=== PATIENT | male | born 1985 | race Caucasian/White ===

== ENCOUNTER 2023-02-22 14:22 | Emergency (ER) | payer BC, SELFPAY ==
[2023-02-22] VITALS (20 sets, daily range): BP systolic 166–198; BP diastolic 101–128; PULSE 98–117; RESP 11–23; O2SAT 79–100
--- NOTE | ~2023-02-22 | CT_ITS ---
EXAMINATION: CTA BRAIN/CAROTID DATE: 02/22/2023 14:43 INDICATION: Stroke presenting with 2 hours of headache, aphasia and unsteady gait TECHNIQUE: Computed tomographic angiography (CTA) of the head and neck was performed with 100 mL Omni paque-350 intravenous contrast. Multiplanar reconstructions and maximum intensity projection 3D-recon structions of the carotid arteries and of the intracranial arteries were created by the technologist on a separate workstation. Precontrast CT of the head was also obtained. Automated exposure control and iterative reconstruction technique were employed.The dose-length product was 1783.55 mGy-cm. COMPARISON: None. FINDINGS: Carotid arteries: Visualized portion of the aortic arch is normal in caliber with no dissection or hemodynamically sign ificant stenosis. There is no evident atherosclerotic plaque with 0% stenosis of the right and left c arotid bulbs relative to normal distal artery lumen diameter (NASCET criteria). Cervical soft tissues are unremarkable. Mild cervical spondylosis. Visualized upper lungs are clear. Head: No acute intracranial hemorrhage, acute infarction or abnormal extra axial fluid collection. Ventricl es are normal and symmetric. No mass/mass effect. No abnormally enhancing brain lesions on the post c ontrast imaging. The orbits, paranasal sinuses and mastoid air cells are normal. Per stroke protocol, the results from the noncontrast head CT portion of the examination were discussed with Dr. Brown at 2:39 PM . Intracranial arteries There is no hemodynamically significant stenosis in the vertebral, basilar and internal carotid arter ies. Vertebral arteries are codominant. There are no aneurysms identified. Both A1 and P1 segments a re patent. There are also a patent anterior communicating artery and bilateral posterior communicatin g arteries. Cerebral arterial arborization appears symmetric. IMPRESSION: 1. No% stenosis of the right and left carotid bulbs relative to normal distal artery lumen diameter ( NASCET criteria). 2. No acute intracranial process. 3. Normal cerebral CT angiogram. Reviewed, dictated and finalized at location A. IMPRESSION: 1. No% stenosis of the right and left carotid bulbs relative to normal distal a rtery lumen diameter (NASCET criteria). 2. No acute intracranial process. 3. Normal cerebral CT angiogram.
--- NOTE | ~2023-02-22 | XR_ITS ---
Portable chest x-ray Comparison: None Clinical History: Weakness Findings: Lungs are clear, without focal consolidation or pleural effusion. Cardiomediastinal silho uette is unremarkable. Bones and soft tissues are unremarkable. Impression: Normal chest. Reviewed, dictated and finalized at location . Impression: Normal chest.
--- NOTE | 2023-02-22 14:25 | ECG_ITS ---
Measurements Intervals [place] Rate: 95 P: 46 OR: 156 QRS: 3 QRSD: 92 T: 35 QT: 351 QTc: 443 Interpretive Statements SINUS RHYTHM POSSIBLE LEFT ATRIAL ENLARGEMENT [-0.1mV P WAVE IN V1/V2] BORDERLINE ECG NO PREVIOUS ECG AVAILABLE FOR COMPARISON Electronically Signed On 02-22-2023 15:45:15 CDT by Bharat Merchant M.D.
[2023-02-22 14:41] LABS: Estimated Glomerular Filt Rate > 60
[2023-02-22 14:53] LABS: Glucose Point of Care 115 mg/dl (65-105)
--- NOTE | 2023-02-22 15:06 | ED.NEUROSD ---
HPI - Neuro Symptoms/Deficit General Chief Complaint: Suspected CVA Stated Complaint: aphasia Time Seen by Provider: 02/22/23 14:29 History of Present Illness HPI Narrative: 37-year-old male presented to the ED for evaluation of difficulty speaking and difficulty word finding. Patient states that he was complaining of a headache earlier this morning. Patient states that he left for work and was at his baseline at approximately 1215. When patient was at work coworkers noticed that he was having increased difficulty with word finding so he was sent home. Related Data Allergies Allergy/AdvReac Type Severity Reaction Status Date / Time No Known Allergies Allergy Verified 02/22/23 15:32 Review of Systems Review of Systems: All systems reviewed & are unremarkable except as noted in HPI and below PMFSH Family History Family History (System 01/25/20 @ 14:45 by Mily Land) Grandparent Family history of cardiovascular disease Carcinoma of colon Father Family history of cardiovascular disease, Onset Age: 40 Social History Social History (System 01/25/20 @ 14:45 by Mily Land) Smoking status: Never smoker Second hand tobacco smoke exposure: No Alcohol intake: never Exam Narrative: APPEARANCE: Well appearing, no pain, no distress, well-nourished. HEAD: normocephalic, atraumatic. EYES: PERRLA/EOMI, conjunctivae clear. NOSE: Normal no drainage THROAT: Pharynx clear, no exudate. NECK: Supple. No adenopathy, no masses. RESPIRATORY: Airway patent, respirations nonlabored. Clear to auscultation bilaterally, no rales, rhonchi, wheezing. CARDIOVASCULAR: Regular rate and rhythm without murmurs rubs or gallops. ABDOMINAL: Soft, nontender, nondistended, normal bowel sounds MUSCULOSKELETAL: Moves all extremities. Strength/ROM intact, No edema, No calf tenderness. NEURO: Alert. Difficulty word finding. Denies any numbness or weakness. Some decreased peripheral vision of the right visual field of the right eye. No ataxia or drift. Normal strength and reflexes SKIN: Warm, dry. Normal Color PSYCHIATRIC: Normal affect/mood. Course Course Emergency Course: Patient was in the window for tPA. I discussed the case with [facility] neuro interventionalists, Dr Willoughby, and they did recommend treatment with tPA even though the patient does have a negative score of 5. I did have a discussion with the family discussing the benefits and risks of bleeding with tPA. Family was comfortable with the plan on proceeding forward with the tPA. All question concerns were addressed. Patient had no contraindications to tPA other than an intermittent elevated blood pressure. When tPA was started his blood pressure was 166/110. After starting tPA patient's blood pressure did increase but nicardipine was available and was started to maintain a blood pressure under 185/110. Patient was reevaluated and time of transport and patient had no significant change in his symptoms. Vital Signs Vital signs: Vital Signs Pulse Rate 104 H 02/22/23 14:54 Respiratory Rate 20 02/22/23 14:54 Blood Pressure 185/116 H 02/22/23 14:54 Pulse Oximetry 99 02/22/23 14:54 Pulse Rate 113 H 02/22/23 16:11 Respiratory Rate 15 02/22/23 16:11 Blood Pressure 182/108 H 02/22/23 16:11 Pulse Oximetry 100 02/22/23 16:11 Oxygen Delivery Room Air 02/22/23 15:32 MDM - Neuro Symptoms/Deficit Differential Diagnosis Differential diagnosis: Likely subarachnoid hemorrhage, cerebrovascular accident, transient cerebral ischemia and other (Complex migraine) Lab Data Attestation: I reviewed the patient's lab results. 02/22/23 14:58 02/22/23 14:58 Labs: Lab Results 02/22/23 02/22/23 02/22/23 Range/Units 14:39 14:58 14:58 WBC 13.7 H (4.5-10.0) K/mm3 RBC 5.17 (4.6-6.20) M/mm3 Hgb 15.9 (14.0-18.0) g/dL Hct 45.8 (42.0-52.0) % MCV 88.6 (80-100) fl MCH 30.8 (26-34) pg MCHC 34.7 (32-36) g/dl
[2023-02-22 15:09] LABS: Basophils Absolute Auto 0.1 K/mm3 (0.0-0.1); Basophils Percent Auto 0.5 % (0.2-1.2); Eosinophils Percent Auto 0.1 % (0-4.4); Hematocrit 45.8 % (42.0-52.0); Hemoglobin 15.9 g/dL (14.0-18.0); Immature Granulocyte Absolute 0.04 K/mm3 (0.00-0.031); Immature Granulocyte Percent A 0.3 % (0-0.5); Lymphocytes Absolute Auto 1.01 K/mm3 (0.9-3.2); Lymphocytes Percent Auto 7.4 % (18.3-44.2); Mean Corpuscular HGB Conc 34.7 g/dl (32-36); Mean Corpuscular Hemoglobin 30.8 pg (26-34); Mean Corpuscular Volume 88.6 fl (80-100); Mean Platelet Volume 9.7 fl (7.4-10.4); Monocytes Absolute Auto 0.6 K/mm3 (0.1-0.6); Monocytes Percent Auto 4.6 % (2.6-8.5); Neutrophils Absolute Auto 11.9 K/mm3 (1.3-6.7); Neutrophils Percent Auto 87.1 % (45.5-73.1); Platelet Count Result 373 k/mm3 (150-375); Red Blood Count 5.17 M/mm3 (4.6-6.20); Red Cell Distribution Width 12.7 % (11.5-14.5); White Blood Count 13.7 K/mm3 (4.5-10.0)
[2023-02-22 15:16] LABS: INR 1.1; Prothrombin Time 13.4 Seconds (11.1-14.7)
[2023-02-22 15:18] LABS: Alanine Aminotransferase 28 U/L (6-50); Albumin Level 4.8 g/dL (3.5-5.1); Alkaline Phosphatase 79 U/L (38-126); Anion Gap 11 mmol/L (8-16); Aspartate Amino Transferase 28 U/L (17-59); Blood Urea Nitrogen 17 mg/dL (9-20); Calcium 9.2 mg/dL (8.4-10.2); Carbon Dioxide 20 mmol/L (22-30); Chloride 102 mmol/L (98-107); Estimated Glomerular Filt Rate > 60; Glucose 122 mg/dL (65-110); Potassium 4.3 mmol/L (3.4-5.0); Sodium 133 mmol/L (137-145)
[2023-02-22 15:29] LABS: Troponin I < 0.012 ng/mL (0.000-0.034)
[2023-02-22] MEDS: niCARdipine 20 MG/200 ML 20 MG/200 ML BAG 50 MG IV CONT (15:54)
== END 2023-02-22 16:15 | disposition short-term general hospital (02) ==
LOC: ANHED 15:14
PROVIDERS: Emergency Medicine; Emergency Provider Emergency Medicine; PCP Family Medicine
DX: I63.9 Cerebral infarction, unspecified (principal); R29.705 NIHSS score 5; R94.31 Abnormal electrocardiogram [ECG] [EKG]
CPT/HCPCS: 70496; 70498; 71045; 80053; 82948; 84484; 85025; 85610; 85730; 93005; 96374; 96375; 99284; J2997; Q9967

== ENCOUNTER 2023-08-15 03:03 | Inpatient (IN) | payer BC, SELFPAY ==
[2023-08-15] VITALS (23 sets, daily range): BP systolic 120–146; BP diastolic 71–89; PULSE 92–117; RESP 12–24; TEMP 36.1–39.2; O2SAT 94–100
--- NOTE | ~2023-08-15 | CT_ITS ---
EXAMINATION: CT abdomen pelvis wo con DATE: 08/20/2023 16:27 INDICATION: Gastroenteritis. TECHNIQUE: Computed tomography (CT) of the abdomen and pelvis was performed without intravenous contr ast. Automated exposure control and iterative reconstruction technique were employed. The dose-length product was 743.98 mGy-cm. COMPARISON: CT abdomen and pelvis 08/15/2023 FINDINGS: The visualized portions of the lung bases demonstrate mild atelectasis. There are small ple ural effusions. The heart size is normal. No pericardial effusion. The liver and spleen are normal. T here is contrast in the gallbladder, which is normal in size. The pancreas, adrenal glands, and kidne ys are normal. There is no urolithiasis. The prostate is mildly enlarged. There is a left inguinal he rnia containing fat. There is a moderate volume of stool in colon. There is wall thickening of the sp lenic flexure of the colon. The appendix is normal. There is an umbilical hernia containing fat. Ther e are no pathologically enlarged lymph nodes. There is no free intraperitoneal fluid. There is severe lower lumbar spondylosis. IMPRESSION: 1. Small pleural effusions. 2. Wall thickening of the splenic flexure of the colon with interval improvement in distribution, con sistent with colitis. 3. Umbilical hernia containing fat. 4. Left inguinal hernia containing fat. Reviewed, dictated and finalized at location E. IMPRESSION: 1. Small pleural effusions. 2. Wall thickening of the splenic flexure of the colon with interval improvemen t in distribution, consistent with colitis. 3. Umbilical hernia containing fat. 4. Left inguinal hernia containing fat.
--- NOTE | ~2023-08-15 | CT_ITS ---
CT of the Abdomen and Pelvis: Indication: Abdominal pain Technique: 2.5 mm axial scans were obtained through the abdomen and pelvis following intravenous adm inistration of 100 cc of Omnipaque 350. Dose reduction technique was used on this scan by utilizing a utomated exposure control and iterative reconstruction technique. The dose-length product (DLP) was 8 83.65 mGy-cm. Findings: Scans through the lung bases are unremarkable. The liver, spleen, pancreas, gallbladder, adrenals and kidneys are within normal limits. No evidence of aortic aneurysm. No lymphadenopathy. There is mild diffuse large bowel wall thickening. No bowel obstruction. No abscess or free air. Images through the pelvis were performed. Urinary bladder unremarkable. Prostate gland and seminal ve sicles are unremarkable. No ascites. Impression: Diffuse, mild large bowel wall thickening is consistent with pancolitis, most likely of infectious/in flammatory etiology. Correlate clinically. Reviewed, dictated and finalized at [facility]. Impression: Diffuse, mild large bowel wall thickening is consistent with pancolitis, most l ikely of infectious/inflammatory etiology. Correlate clinically.
[2023-08-15] MEDS: SODIUM CHLORIDE 0.9% IV 1,000 ML 999 ML IV CONT ×3 (04:10→05:06)
[2023-08-15] MEDS: ACETAMINOPHEN 500 MG TABLET 1000 MG PO (04:11)
[2023-08-15] MEDS: ONDANSETRON INJ 4 MG/2 ML VIAL IV PUSH (04:11)
[2023-08-15 04:21] LABS: Basophils Absolute Auto 0.1 K/mm3 (0.0-0.1); Hemoglobin 15.7 g/dL (14.0-18.0); Immature Granulocyte Absolute 0.05 K/mm3 (0.00-0.031); Immature Granulocyte Percent A 0.7 % (0-0.5); Lymphocytes Percent Auto 12.2 % (18.3-44.2); Mean Corpuscular HGB Conc 35.7 g/dl (32-36); Mean Corpuscular Hemoglobin 31.3 pg (26-34); Mean Corpuscular Volume 87.6 fl (80-100); Mean Platelet Volume 9.6 fl (7.4-10.4); Monocytes Absolute Auto 1.1 K/mm3 (0.1-0.6); Monocytes Percent Auto 14.3 % (2.6-8.5); Neutrophils Absolute Auto 5.3 K/mm3 (1.3-6.7); Neutrophils Percent Auto 71.8 % (45.5-73.1); Platelet Count Result 331 k/mm3 (150-375); Red Blood Count 5.02 M/mm3 (4.6-6.20); Red Cell Distribution Width 11.9 % (11.5-14.5); White Blood Count 7.4 K/mm3 (4.5-10.0)
[2023-08-15 04:32] LABS: Alanine Aminotransferase 45 U/L (6-50); Albumin Level 4.2 g/dL (3.5-5.1); Alkaline Phosphatase 79 U/L (38-126); Anion Gap 11 mmol/L (8-16); Aspartate Amino Transferase 39 U/L (17-59); Bilirubin,Total 0.8 mg/dL (0.2-1.3); Blood Urea Nitrogen 27 mg/dL (9-20); Calcium 8.9 mg/dL (8.4-10.2); Carbon Dioxide 22 mmol/L (22-30); Chloride 94 mmol/L (98-107); Estimated CRCL calculation 62 ml/min; Estimated Glomerular Filt Rate 56; Glucose 127 mg/dL (65-110); Lipase 112 U/L (23-300); Magnesium 2.2 mg/dL (1.6-2.3); Potassium 3.7 mmol/L (3.4-5.0); Sodium 127 mmol/L (137-145)
[2023-08-15 04:33] LABS: Lactic Acid Reflex 1.8 mmol/L (0.7-2.0)
[2023-08-15 04:57] LABS: Influenza A QL RT-PCR Negative (Negative); Influenza B QL RT-PCR Negative (Negative); SARS-CoV-2 RNA PCR Negative (Negative)
[2023-08-15 05:14] LABS: Procalcitonin 0.2 ng/mL
[2023-08-15 06:34] LABS: Appearance Urine Clear (Clear); Bacteria Urine None Seen /hpf; Bilirubin Urine Negative (Negative); Blood Urine Negative (Negative); Color Urine Yellow (Yellow); Glucose Urine UA Negative (Negative); Ketones Urine 1+ mg/dL (Negative); Leukocyte Esterase Ur Negative LEU/UL (Negative); Need Manual Microscopic Reviewed; Nitrate Urine Negative (Negative); Non Pathogenic Casts 0-2; Protein Urine 1+ mg/dL (Negative); RBC Urine 0-2 /hpf (0-2); Specific Grav Ur 1.085 (1.001-1.035); Squamous Epithelial Cell Urine None seen /hpf (Few); Urobilinogen Urine 0.2 mg/dL (<2.0); WBC Urine 0-5 /hpf; pH Urine 5.5 (5.0-9.0)
[2023-08-15 06:35] LABS: Add Urine Microscopic? YES
--- NOTE | 2023-08-15 06:42 | ED.GENADULT ---
HPI - General Adult General Chief complaint: Fever Stated complaint: fevr, n/v Time Seen by Provider: 08/15/23 03:23 History of Present Illness HPI narrative: Patient is a 38-year-old gentleman who presents the emergency department with chief complaint of nausea vomiting diarrhea and fever. The patient reports that since Saturday he has had multiple bouts of vomiting and diarrhea the patient states he been unable to keep anything down reports that he has seen his primary care provider who started him on Cipro and has had 2 doses of that patient has not had any improvement reports that he feels as though he is extremely dehydrated. Related Data Home Medications Medication Instructions Recorded Confirmed aspirin 81 mg tablet,delayed 81 mg PO DAILY 05/02/23 08/14/23 release (Adult Low Dose Aspirin) Allergies Allergy/AdvReac Type Severity Reaction Status Date / Time No Known Allergies Allergy Verified 08/14/23 10:29 Review of Systems Review of Systems: A 10 system review of systems was completed on the patient and is negative except for what is stated in the HPI. Nursing and ancillary documentation was reviewed. [facility] Past Medical History Medical History Essential (primary) hypertension Headache HTN (hypertension) Surgical History Surgical History [place] teeth extracted (~2004) Family History Family History Grandparent Family history of cardiovascular disease Carcinoma of colon Father Family history of cardiovascular disease, Onset Age: 40 Social History Social History Smoking status: Never smoker Second hand tobacco smoke exposure: No Alcohol intake: never Substance use: never Substance use type: does not use Lack of Transportation: No Lack of Food: Never True Current Housing: I Have Housing Concerned About Future Housing: No Difficulty Paying Gas/Electric Bills: No Difficulty Paying for Meds: No Currently Unemployed: No Education: Bachelor's Degree Difficulty w/ Childcare or Family Care: No Living arrangements: with family Additional living arrangements comments: Occupation/Education: occupation Additional occupation/education comments: [employer] Gender identity (if verbalized by the patient): Male Sexual Orientation (if Verbalized by the Patient): Straight or Heterosexual Spiritual care concerns: No Agree to blood products: Yes Exam Narrative: GENERAL: Well-appearing, well-nourished, and in no acute distress. HEAD: Normocephalic, atraumatic. EYES: PERRLA and EOMI. ENT: Nares clear, no rhinorrhea or epistaxis. Mucous membranes dry. NECK: Supple. CHEST: Clear to auscultation. No respiratory distress. HEART: Regular rate and rhythm. No murmur heard. Normal peripheral pulses. ABDOMEN: Soft, diffusely tender, nondistended, normal active bowel sounds. EXTREMITIES: Normal range of motion. No edema. SKIN: Warm, dry, no rash. NEURO: No focal deficits. Alert and oriented x3. PSYCH: Normal mood and affect. Course Vital Signs Vital signs: Vital Signs Temperature 39.2 C H 08/15/23 03:06 Pulse Rate 117 H 08/15/23 03:06 Respiratory Rate 24 H 08/15/23 03:06 Blood Pressure 146/76 H 08/15/23 03:06 Pulse Oximetry 100 08/15/23 03:06 Oxygen Delivery Room Air 08/15/23 03:06 Temperature 37.1 C 08/15/23 05:32 Pulse Rate 95 08/15/23 06:15 Respiratory Rate 13 08/15/23 06:15 Blood Pressure 124/76 08/15/23 06:15 Pulse Oximetry 99 08/15/23 06:15 Oxygen Delivery Room Air 08/15/23 03:06 Medical Decision Making MDM Narrative Medical decision making narrative: Differential diagnosis diverticulitis, colitis, gastroenteritis Laboratory studies were obt
[2023-08-15] MEDS: PANTOPRAZOLE SODIUM IV 40 MG VIAL IV PUSH (07:07)
[2023-08-15] MEDS: metroNIDAZOLE 500 MG/ISO 100ML 500 MG/100 ML BAG 100 MG IVPB ×3 (07:33→22:03)
--- NOTE | 2023-08-15 07:35 | PM.IMHP ---
H&P: HPI History of Present Illness Date/Time: 08/15/23 07:35 Chief Complaint: Fever nausea vomiting Narrative: 48 years old gentleman with history of hypertension, hyperlipidemia, present ED with a chief complaint of fever, nausea vomiting diarrhea and abdominal pain. Patient started have fever on Saturday, start patient started have nausea vomiting diarrhea and diffuse abdominal pain on Saturday. patient [facility]. In past 2 days, patient cannot tolerate diet, therefore patient comes ED for evaluation. In the ED, patient was found have normal cBC electrolytes showed a creatinine of 1.4 with a BUN of 27 this is significantly increased from the patient's previous labs patient had a lactate of 1.8 procalcitonin 0.2 urinalysis showed no evidence of UTI COVID and flu were negative. CT scan of the abdomen pelvis showed evidence of pancolitis. Patient denies headache, photophobia, chest pain, shortness of breath, cough, dysuria Review of Systems Review of Systems: ROS negative except above PMFSH Past Medical History Medical History Essential (primary) hypertension Headache HTN (hypertension) Surgical History Surgical History [place] teeth extracted (~2004) Family History Family History Grandparent Family history of cardiovascular disease Carcinoma of colon Father Family history of cardiovascular disease, Onset Age: 40 Social History Social History Smoking status: Never smoker Second hand tobacco smoke exposure: No Alcohol intake: never Substance use: never Substance use type: does not use Lack of Transportation: No Lack of Food: Never True Current Housing: I Have Housing Concerned About Future Housing: No Difficulty Paying Gas/Electric Bills: No Difficulty Paying for Meds: No Currently Unemployed: No Education: Bachelor's Degree Difficulty w/ Childcare or Family Care: No Living arrangements: with family Additional living arrangements comments: Occupation/Education: occupation Additional occupation/education comments: [employer] Gender identity (if verbalized by the patient): Male Sexual Orientation (if Verbalized by the Patient): Straight or Heterosexual Spiritual care concerns: No Agree to blood products: Yes Meds Home Medications and Allergies Home Medications Medication Instructions Recorded Confirmed Type CPAP #1 ea 04/15/23 08/15/23 Rx amlodipine 10 mg tablet 10 mg PO DAILY #90 tabs 05/02/23 08/15/23 Rx aspirin 81 mg tablet,delayed 81 mg PO DAILY 05/02/23 08/15/23 History release (Adult Low Dose Aspirin) lisinopril 10 1 tablet PO DAILY #90 tabs 05/02/23 08/15/23 Rx mg-hydrochlorothiazide 12.5 mg tablet ciprofloxacin HCl 500 mg tablet 500 mg PO Q12H #10 tabs 08/14/23 08/15/23 Rx (Cipro) ondansetron 8 mg disintegrating 8 mg PO Q8H PRN nausea and 08/14/23 08/15/23 Rx tablet vomiting #15 tabs atorvastatin 80 mg tablet 80 mg PO QPM 08/15/23 08/15/23 History Allergies Allergy/AdvReac Type Severity Reaction Status Date / Time No Known Allergies Allergy Verified 08/15/23 08:48 Vital Signs Vital Signs - 24 hr 08/15/23 03:06 08/15/23 03:27 08/15/23 03:45 Temperature 102.6 F H Pulse Rate 117 H 109 H 107 H Respiratory Rate 24 H 20 15 Blood Pressure 146/76 H 133/89 Pulse Oximetry 100 99 99 Oxygen Delivery Room Air 08/15/23 03:46 08/15/23 04:00 08/15/23 04:01 Temperature Pulse Rate 106 H 106 H 107 H Respiratory Rate 14 15 16 Blood Pressure 131/84 130/81 Pulse Oximetry 99 Oxygen Delivery 08/15/23 04:46 08/15/23 05:00 08/15/23 05:26 Temperature Pulse Rate 98 107 H 97 Respiratory Rate 16 15 15 Blood Pressure 124/73
--- NOTE | 2023-08-15 08:25 | ADMGEN ---
This patient, Brett Knight, was admitted to 3 [facility] Surg Room 313-01. Patient/family oriented to hospital policies and general routines including ID bracelet, bed and alarms, visiting hours, pain management, procedures, bathroom and other care routines, personal items, smoking policy, room service/diet, and visiting hours. Information on how to activate the Rapid Response Team has been discussed. Patient/Family are encouraged to report perceived risks to care and to ask questions if they do not understand what they are told or what they should do.
[2023-08-15] MEDS: SODIUM CHLORIDE 0.9% IV 1,000 ML 125 ML IV CONT ×2 (08:39→17:31)
[2023-08-15 12:53] LABS: Toxigenic C. Diff NEGATIVE (NEGATIVE)
[2023-08-15] MEDS: HEPARIN SODIUM 5,000 UNITS/ML VIAL 5000 UNITS SUB-Q ×2 (14:10→22:00)
[2023-08-15] MEDS: cefTRIAXone 2 GM/NS 100 ML 2 GM/100 ML BAG IVPB (15:23)
[2023-08-16] MEDS: SODIUM CHLORIDE 0.9% IV 1,000 ML 125 ML IV CONT ×2 (02:39→22:11)
[2023-08-16] MEDS: metroNIDAZOLE 500 MG/ISO 100ML 500 MG/100 ML BAG 100 MG IVPB ×3 (05:37→21:29)
[2023-08-16] MEDS: HEPARIN SODIUM 5,000 UNITS/ML VIAL 5000 UNITS SUB-Q ×3 (05:37→21:29)
[2023-08-16 06:00] VITALS: BP 127/72; PULSE 92; RESP 16; TEMP 36.1; O2SAT 95
[2023-08-16 06:40] LABS: Basophils Absolute Auto 0.1 K/mm3 (0.0-0.1); Basophils Percent Auto 0.7 % (0.2-1.2); Eosinophils Percent Auto 0.1 % (0-4.4); Hematocrit 35.1 % (42.0-52.0); Hemoglobin 12.1 g/dL (14.0-18.0); Immature Granulocyte Absolute 0.08 K/mm3 (0.00-0.031); Immature Granulocyte Percent A 0.8 % (0-0.5); Lymphocytes Absolute Auto 1.64 K/mm3 (0.9-3.2); Lymphocytes Percent Auto 17.4 % (18.3-44.2); Mean Corpuscular HGB Conc 34.5 g/dl (32-36); Mean Corpuscular Hemoglobin 30.9 pg (26-34); Mean Corpuscular Volume 89.5 fl (80-100); Mean Platelet Volume 9.4 fl (7.4-10.4); Monocytes Absolute Auto 1.6 K/mm3 (0.1-0.6); Monocytes Percent Auto 16.7 % (2.6-8.5); Neutrophils Absolute Auto 6.1 K/mm3 (1.3-6.7); Neutrophils Percent Auto 64.3 % (45.5-73.1); Platelet Count Result 309 k/mm3 (150-375); Red Blood Count 3.92 M/mm3 (4.6-6.20); Red Cell Distribution Width 11.9 % (11.5-14.5); White Blood Count 9.5 K/mm3 (4.5-10.0)
[2023-08-16 06:50] LABS: Anion Gap 8 mmol/L (8-16); Blood Urea Nitrogen 11 mg/dL (9-20); Calcium 7.3 mg/dL (8.4-10.2); Carbon Dioxide 20 mmol/L (22-30); Chloride 103 mmol/L (98-107); Estimated CRCL calculation 146 ml/min; Estimated Glomerular Filt Rate > 60; Glucose 91 mg/dL (65-110); Potassium 3.3 mmol/L (3.4-5.0); Sodium 131 mmol/L (137-145)
[2023-08-16] MEDS: PANTOPRAZOLE SODIUM IV 40 MG VIAL IV PUSH (08:38)
--- NOTE | 2023-08-16 08:40 | PM.IMPN ---
Progress Note: A&P Assessment and Plan (1) Acute infective gastroenteritis: Code(s): A09 - Infectious gastroenteritis and colitis, unspecified Status: Acute (2) Sepsis: Code(s): A41.9 - Sepsis, unspecified organism Status: Acute (3) Dehydration: Code(s): E86.0 - Dehydration Status: Acute (4) Acute kidney injury: Code(s): N17.9 - Acute kidney failure, unspecified Status: Acute (5) Essential (primary) hypertension: Code(s): I10 - Essential (primary) hypertension Status: Acute Plan Acute infective gastroenteritis Patient has been having nausea vomiting diarrhea abdominal pain in past 5 days, failed outpatient treatment with Cipro The patient has a fever, tachycardia tachypnea Possible sepsis due to acute infective gastroenteritis CT suggests pancolitis Patient received ceftriaxone 1 g daily in the ED, Flagyl 500 q.8 hours IV, for increased ceftriaxone 2 g IV daily, continue Flagyl 500 mg q.8 hours Follow-up blood culture, stool culture, C diff screening Continue antibiotics Sepsis Patient had fever, tachypnea, tachycardia POA in the ED, possible resulting from acute infective gastroenteritis Patient received fluid resuscitation in the ED, continue normal saline IV Follow-up blood culture, stool culture pendig. C diff negative LUC, dehydration, hyponatremia, hypokalemia Likely secondary to acute gastroenteritis Continue fluid resuscitation, replete with potassium chloride p.o. 40 mEq daily Avoid nephrotoxic medication Follow-up BMP Acute renal failure has resolved Hypertension Hold hypertension medication, blood pressure soft Patient may stay more than 2 midnight in hospital DVT prophylaxis subQ heparin Subjective Date/time seen: 08/16/23 08:40 Interval history: Patient is afebrile over the night, feels better, still has diarrhea 1 bowel movement per 1 hr. acute renal failure resolved, stool culture pending, C diff negative Exam Narrative: GENERAL: Pleasant, in no acute distress. Well-nourished. - EYES: EOMI. Anicteric. - HENT: Dry mucous membranes. - LUNGS: Clear to auscultation bilaterally, no wheezing, rhonchi, or rales. - CARDIOVASCULAR: Regular rate and rhythm. No murmur. No JVD. - ABDOMEN: Soft, diffuse tender and non-distended. Hyperactive bowel sounds no palpable masses. - EXTREMITIES: No edema. Peripheral pulses 2+. Non-tender. - NEUROLOGIC: No focal neurological deficits. CN II-XII grossly intact. - PSYCHIATRIC: Awake, Alert and oriented x 3. Appropriate mood and affect. - SKIN: No rashes or lesions. Warm. - LYMPH: No cervical lymphadenopathy. Objective Data Vital Signs Vital Signs: Vital Signs - 24 hr 08/15/23 08:50 08/15/23 11:42 08/15/23 19:46 Temperature 97.1 F L 97.2 F L Pulse Rate 92 92 Respiratory Rate 16 16 Blood Pressure 120/79 Pulse Oximetry 98 98 Oxygen Delivery Room Air 08/15/23 22:00 08/16/23 06:00 Temperature 98.2 F 97 F L Pulse Rate 96 92 Respiratory Rate 18 16 Blood Pressure 120/71 127/72 Pulse Oximetry 97 95 Oxygen Delivery Intake/Output Intake/Output: Intake & Output 08/13/23 08/14/23 08/15/23 08/16/23 23:59 23:59 23:59 23:59 Intake Total 4400 1000 Balance 4400 1000 Meds/Results Medications: Active Medications Generic Name Dose Route Start Last Admin Trade Name Freq PRN Reason Stop Dose Admin Heparin Sodium (Porcine) 5,000 units 08/15/23 14:00 08/16/23 05:37 Heparin Sodium 5,000 Units/Ml Vial SUB-Q 5,000 units Q8HR OLENA Administration Metronidazole 500 mg in 100 mls @ 100 mls/hr 08/15/23 14:00 08/16/23 05:37 Flagyl 500 Mg/Iso Soln 100 Ml IVPB 100 mls/hr Q8HR OLENA Administration Sodium Chloride 1,000 mls @ 125 mls/hr 08/15/23 06:50 08/16/23 02:39 Normal Saline Iv IV CONT 125 mls/hr .Q8H OLENA Administration Ceftriaxone Sodium 2 gm in 100 mls @ 200 mls/hr 08/15/23 15:00 08/15/23 15:53 Rocephin 2 Gm/Ns 100 Ml
[2023-08-16] MEDS: POTASSIUM CHLORIDE 20 MEQ PACKET (FOR LIQUID) 40 MEQ PO (09:50)
[2023-08-16] MEDS: LOPERAMIDE HCL 2 MG CAPSULE 4 MG PO (12:38)
[2023-08-16 13:30] VITALS: BP 118/79; PULSE 91; RESP 18; TEMP 37.2; O2SAT 95
[2023-08-16] MEDS: cefTRIAXone 2 GM/NS 100 ML 2 GM/100 ML BAG IVPB (16:29)
[2023-08-16 19:32] VITALS: O2SAT 95
[2023-08-16 21:18] VITALS: BP 150/83; PULSE 100; RESP 18; TEMP 36.3; O2SAT 97
[2023-08-17 06:00] VITALS: BP 123/77; PULSE 87; RESP 16; TEMP 36.2; O2SAT 96
[2023-08-17 06:55] LABS: Basophils Absolute Auto 0.1 K/mm3 (0.0-0.1); Basophils Percent Auto 0.7 % (0.2-1.2); Eosinophils Absolute Auto 0.1 K/mm3 (0-0.3); Hemoglobin 11.7 g/dL (14.0-18.0); Immature Granulocyte Absolute 0.13 K/mm3 (0.00-0.031); Immature Granulocyte Percent A 1.3 % (0-0.5); Lymphocytes Absolute Auto 1.76 K/mm3 (0.9-3.2); Mean Corpuscular HGB Conc 35.5 g/dl (32-36); Mean Corpuscular Hemoglobin 31.4 pg (26-34); Mean Corpuscular Volume 88.5 fl (80-100); Mean Platelet Volume 9.5 fl (7.4-10.4); Monocytes Absolute Auto 1.4 K/mm3 (0.1-0.6); Monocytes Percent Auto 14.5 % (2.6-8.5); Neutrophils Absolute Auto 6.3 K/mm3 (1.3-6.7); Neutrophils Percent Auto 64.5 % (45.5-73.1); Platelet Count Result 336 k/mm3 (150-375); Red Blood Count 3.73 M/mm3 (4.6-6.20); White Blood Count 9.8 K/mm3 (4.5-10.0)
[2023-08-17 07:11] LABS: Anion Gap 6 mmol/L (8-16); Blood Urea Nitrogen 12 mg/dL (9-20); Calcium 7.5 mg/dL (8.4-10.2); Carbon Dioxide 22 mmol/L (22-30); Chloride 105 mmol/L (98-107); Estimated CRCL calculation 121 ml/min; Estimated Glomerular Filt Rate > 60; Glucose 98 mg/dL (65-110); Potassium 3.5 mmol/L (3.4-5.0); Sodium 133 mmol/L (137-145)
--- NOTE | 2023-08-17 08:59 | PM.IMPN ---
Progress Note: A&P Assessment and Plan (1) Acute infective gastroenteritis: Code(s): A09 - Infectious gastroenteritis and colitis, unspecified Status: Acute (2) Sepsis: Code(s): A41.9 - Sepsis, unspecified organism Status: Acute (3) Dehydration: Code(s): E86.0 - Dehydration Status: Acute (4) Acute kidney injury: Code(s): N17.9 - Acute kidney failure, unspecified Status: Acute (5) Essential (primary) hypertension: Code(s): I10 - Essential (primary) hypertension Status: Acute Plan Acute infective gastroenteritis Patient has been having nausea vomiting diarrhea abdominal pain in past 5 days, failed outpatient treatment with Cipro The patient has a fever, tachycardia tachypnea Possible sepsis due to acute infective gastroenteritis CT suggests pancolitis Patient received ceftriaxone 1 g daily in the ED, Flagyl 500 q.8 hours IV, for increased ceftriaxone 2 g IV daily, continue Flagyl 500 mg q.8 hours Follow-up blood culture no growth, pending stool culture, C diff screening negative Continue antibiotics Sepsis Patient had fever, tachypnea, tachycardia POA in the ED, possible resulting from acute infective gastroenteritis Patient received fluid resuscitation in the ED, continue normal saline IV Follow-up blood culture no growth so far,, stool culture pendig. C diff negative LUC, dehydration, hyponatremia, hypokalemia Likely secondary to acute gastroenteritis Continue fluid resuscitation, replete with potassium chloride p.o. 40 mEq daily Avoid nephrotoxic medication Follow-up BMP Acute renal failure has resolved Hypertension Hold hypertension medication, blood pressure soft Patient may stay more than 2 midnight in hospital DVT prophylaxis subQ heparin Subjective Date/time seen: 08/17/23 08:59 Interval history: Patient is afebrile over the night, feels better, still has diarrhea but has last bowel movement today, blood culture negative, stool culture pending, low-grade fever in the night, Exam Narrative: GENERAL: Pleasant, in no acute distress. Well-nourished. - EYES: EOMI. Anicteric. - HENT: Dry mucous membranes. - LUNGS: Clear to auscultation bilaterally, no wheezing, rhonchi, or rales. - CARDIOVASCULAR: Regular rate and rhythm. No murmur. No JVD. - ABDOMEN: Soft, diffuse tender and non-distended. Hyperactive bowel sounds no palpable masses. - EXTREMITIES: No edema. Peripheral pulses 2+. Non-tender. - NEUROLOGIC: No focal neurological deficits. CN II-XII grossly intact. - PSYCHIATRIC: Awake, Alert and oriented x 3. Appropriate mood and affect. - SKIN: No rashes or lesions. Warm. - LYMPH: No cervical lymphadenopathy. Objective Data Vital Signs Vital Signs: Vital Signs - 24 hr 08/16/23 13:30 08/16/23 19:32 08/16/23 21:18 Temperature 99.0 F 97.3 F L Pulse Rate 91 100 Respiratory Rate 18 18 Blood Pressure 118/79 150/83 H Pulse Oximetry 95 95 97 Oxygen Delivery Room Air 08/17/23 06:00 Temperature 97.2 F L Pulse Rate 87 Respiratory Rate 16 Blood Pressure 123/77 Pulse Oximetry 96 Oxygen Delivery Intake/Output Intake/Output: Intake & Output 08/14/23 08/15/23 08/16/23 08/17/23 23:59 23:59 23:59 23:59 Intake Total 4400 3330 250 Balance 4400 3330 250 Meds/Results Medications: Active Medications Generic Name Dose Route Start Last Admin Trade Name Freq PRN Reason Stop Dose Admin Heparin Sodium (Porcine) 5,000 units 08/15/23 14:00 08/16/23 21:29 Heparin Sodium 5,000 Units/Ml Vial SUB-Q 5,000 units Q8HR OLENA Administration Metronidazole 500 mg in 100 mls @ 100 mls/hr 08/15/23 14:00 08/16/23 21:29 Flagyl 500 Mg/Iso Soln 100 Ml IVPB 100 mls/hr Q8HR OLENA Administration Sodium Chloride 1,000 mls @ 125 mls/hr 08/15/23 06:50 08/17/23 08:46 Normal Saline Iv IV CONT Not Given .Q8H OLENA Ceftriaxone Sodium 2 gm in 100 mls @ 200 mls/hr 08/15/23 15:00 08/16/23 16:59 Roce
[2023-08-17] MEDS: SODIUM CHLORIDE 0.9% IV 1,000 ML 125 ML IV CONT ×2 (09:04→20:54)
[2023-08-17] MEDS: POTASSIUM CHLORIDE 20 MEQ PACKET (FOR LIQUID) 40 MEQ PO (09:04)
[2023-08-17] MEDS: PANTOPRAZOLE SODIUM IV 40 MG VIAL IV PUSH (09:04)
[2023-08-17 14:00] VITALS: BP 119/71; PULSE 91; RESP 14; TEMP 37.3; O2SAT 98
[2023-08-17] MEDS: LOPERAMIDE HCL 2 MG CAPSULE 4 MG PO (14:40)
[2023-08-17] MEDS: HEPARIN SODIUM 5,000 UNITS/ML VIAL 5000 UNITS SUB-Q ×2 (14:41→20:56)
[2023-08-17] MEDS: metroNIDAZOLE 500 MG/ISO 100ML 500 MG/100 ML BAG 100 MG IVPB ×2 (14:41→20:56)
[2023-08-17] MEDS: cefTRIAXone 2 GM/NS 100 ML 2 GM/100 ML BAG IVPB (14:41)
[2023-08-17] MEDS: LOPERAMIDE HCL 2 MG CAPSULE PO (16:54)
[2023-08-17 20:00] VITALS: PULSE 89; RESP 16; O2SAT 97
[2023-08-17] MEDS: ONDANSETRON INJ 4 MG/2 ML VIAL IV PUSH (20:55)
[2023-08-17 22:00] VITALS: BP 137/86; PULSE 93; RESP 14; TEMP 36.8; O2SAT 98
[2023-08-18 05:52] VITALS: BP 126/82; PULSE 90; RESP 16; TEMP 36.7; O2SAT 95
[2023-08-18] MEDS: SODIUM CHLORIDE 0.9% IV 1,000 ML 125 ML IV CONT ×2 (06:12→14:50)
[2023-08-18] MEDS: HEPARIN SODIUM 5,000 UNITS/ML VIAL 5000 UNITS SUB-Q ×3 (06:13→21:10)
[2023-08-18] MEDS: metroNIDAZOLE 500 MG/ISO 100ML 500 MG/100 ML BAG 100 MG IVPB (06:14)
--- NOTE | 2023-08-18 07:58 | PM.IMPN ---
Progress Note: A&P Assessment and Plan (1) Acute infective gastroenteritis: Code(s): A09 - Infectious gastroenteritis and colitis, unspecified Status: Acute (2) Sepsis: Code(s): A41.9 - Sepsis, unspecified organism Status: Acute (3) Dehydration: Code(s): E86.0 - Dehydration Status: Acute (4) Acute kidney injury: Code(s): N17.9 - Acute kidney failure, unspecified Status: Acute (5) Essential (primary) hypertension: Code(s): I10 - Essential (primary) hypertension Status: Acute Plan Acute infective gastroenteritis Patient has been having nausea vomiting diarrhea abdominal pain in past 5 days, failed outpatient treatment with Cipro The patient has a fever, tachycardia tachypnea Possible sepsis due to acute infective gastroenteritis CT suggests pancolitis Patient received ceftriaxone 1 g daily in the ED, Flagyl 500 q.8 hours IV, for increased ceftriaxone 2 g IV daily and Flagyl 500 mg q.8 hours 08/18 Follow-up blood culture no growth, Salmonella bacteria grows from stool culture, resistant to Levaquin. C diff screening negative dc Flagyl Continue ceftriaxone IV, still has diarrhea, add azithromycin 1 g today, 500 mg daily from tomorrow Sepsis Patient had fever, tachypnea, tachycardia POA in the ED, possible resulting from acute infective gastroenteritis Patient received fluid resuscitation in the ED, continue normal saline IV Follow-up blood culture no growth so far,, stool culture pendig. C diff negative LUC, dehydration, hyponatremia, hypokalemia Likely secondary to acute gastroenteritis Continue fluid resuscitation, replete with potassium chloride p.o. 40 mEq daily Avoid nephrotoxic medication Follow-up BMP Acute renal failure has resolved Hypertension Hold hypertension medication, blood pressure soft Patient may stay more than 2 midnight in hospital DVT prophylaxis subQ heparin Subjective Date/time seen: 08/18/23 07:58 Interval history: Patient is afebrile over the night, feels better, still has diarrhea but has less bowel movement today, blood culture negative, stool culture grows salmonella, resistant to levofloxacin Exam Narrative: GENERAL: Pleasant, in no acute distress. Well-nourished. - EYES: EOMI. Anicteric. - HENT: Dry mucous membranes. - LUNGS: Clear to auscultation bilaterally, no wheezing, rhonchi, or rales. - CARDIOVASCULAR: Regular rate and rhythm. No murmur. No JVD. - ABDOMEN: Soft, diffuse tender and non-distended. Hyperactive bowel sounds no palpable masses. - EXTREMITIES: No edema. Peripheral pulses 2+. Non-tender. - NEUROLOGIC: No focal neurological deficits. CN II-XII grossly intact. - PSYCHIATRIC: Awake, Alert and oriented x 3. Appropriate mood and affect. - SKIN: No rashes or lesions. Warm. - LYMPH: No cervical lymphadenopathy. Objective Data Vital Signs Vital Signs: Vital Signs - 24 hr 08/17/23 08:00 08/17/23 14:00 08/17/23 20:00 Temperature 99.2 F Pulse Rate 91 89 Respiratory Rate 14 16 Blood Pressure 119/71 Pulse Oximetry 98 97 Oxygen Delivery Room Air Room Air 08/17/23 22:00 08/18/23 05:52 Temperature 98.3 F 98.1 F Pulse Rate 93 90 Respiratory Rate 14 16 Blood Pressure 137/86 126/82 Pulse Oximetry 98 95 Oxygen Delivery Intake/Output Intake/Output: Intake & Output 08/15/23 08/16/23 08/17/23 08/18/23 23:59 23:59 23:59 23:59 Intake Total 4400 3430 3652 1790 Balance 4400 3430 3652 1790 Meds/Results Medications: Active Medications Generic Name Dose Route Start Last Admin Trade Name Freq PRN Reason Stop Dose Admin Heparin Sodium (Porcine) 5,000 units 08/15/23 14:00 08/18/23 06:13 Heparin Sodium 5,000 Units/Ml Vial SUB-Q 5,000 units Q8HR OLENA Administration Metronidazole 500 mg in 100 mls @ 100 mls/hr 08/15/23 14:00 08/18/23 06:14 Flagyl 500 Mg/Iso Soln 100 Ml IVPB 100 mls/hr Q8HR OLENA Administration Sodium Chloride 1,000 mls @ 125 mls
[2023-08-18] MEDS: PANTOPRAZOLE SODIUM IV 40 MG VIAL IV PUSH (08:23)
[2023-08-18] MEDS: POTASSIUM CHLORIDE 20 MEQ PACKET (FOR LIQUID) 40 MEQ PO (08:23)
[2023-08-18] MEDS: LOPERAMIDE HCL 2 MG CAPSULE PO ×3 (08:23→17:54)
[2023-08-18 08:48] LABS: Basophils Absolute Auto 0.1 K/mm3 (0.0-0.1); Basophils Percent Auto 0.9 % (0.2-1.2); Eosinophils Absolute Auto 0.3 K/mm3 (0-0.3); Eosinophils Percent Auto 3.2 % (0-4.4); Hemoglobin 12.3 g/dL (14.0-18.0); Immature Granulocyte Absolute 0.36 K/mm3 (0.00-0.031); Immature Granulocyte Percent A 3.6 % (0-0.5); Lymphocytes Absolute Auto 2.26 K/mm3 (0.9-3.2); Lymphocytes Percent Auto 22.8 % (18.3-44.2); Mean Corpuscular HGB Conc 34.2 g/dl (32-36); Mean Corpuscular Hemoglobin 30.7 pg (26-34); Mean Corpuscular Volume 89.8 fl (80-100); Mean Platelet Volume 9.2 fl (7.4-10.4); Monocytes Absolute Auto 1.2 K/mm3 (0.1-0.6); Monocytes Percent Auto 12.2 % (2.6-8.5); Neutrophils Absolute Auto 5.7 K/mm3 (1.3-6.7); Neutrophils Percent Auto 57.3 % (45.5-73.1); Platelet Count Result 387 k/mm3 (150-375); Red Blood Count 4.01 M/mm3 (4.6-6.20); Red Cell Distribution Width 12.6 % (11.5-14.5); White Blood Count 9.9 K/mm3 (4.5-10.0)
[2023-08-18 09:00] LABS: Anion Gap 6 mmol/L (8-16); Blood Urea Nitrogen 5 mg/dL (9-20); Calcium 7.9 mg/dL (8.4-10.2); Carbon Dioxide 25 mmol/L (22-30); Chloride 107 mmol/L (98-107); Estimated CRCL calculation 121 ml/min; Estimated Glomerular Filt Rate > 60; Glucose 103 mg/dL (65-110); Potassium 3.8 mmol/L (3.4-5.0); Sodium 138 mmol/L (137-145)
[2023-08-18 10:02] VITALS: O2SAT 98
[2023-08-18 14:00] VITALS: BP 132/85; PULSE 94; RESP 16; TEMP 36.9; O2SAT 100
[2023-08-18] MEDS: AZITHROMYCIN 250 MG TABLET 1000 MG PO (15:07)
[2023-08-18] MEDS: cefTRIAXone 2 GM/NS 100 ML 2 GM/100 ML BAG IVPB (15:07)
[2023-08-18 20:07] VITALS: BP 130/85; PULSE 94; RESP 16; TEMP 36.7; O2SAT 100
[2023-08-19] MEDS: SODIUM CHLORIDE 0.9% IV 1,000 ML 125 ML IV CONT (00:57)
[2023-08-19 05:47] VITALS: BP 128/76; PULSE 101; RESP 16; TEMP 36.6; O2SAT 98
[2023-08-19] MEDS: HEPARIN SODIUM 5,000 UNITS/ML VIAL 5000 UNITS SUB-Q ×3 (06:40→20:48)
[2023-08-19 06:41] LABS: Basophils Absolute Auto 0.1 K/mm3 (0.0-0.1); Eosinophils Absolute Auto 0.5 K/mm3 (0-0.3); Eosinophils Percent Auto 4.1 % (0-4.4); Hematocrit 32.7 % (42.0-52.0); Hemoglobin 11.3 g/dL (14.0-18.0); Immature Granulocyte Percent A 4.8 % (0-0.5); Lymphocytes Percent Auto 23.9 % (18.3-44.2); Mean Corpuscular HGB Conc 34.6 g/dl (32-36); Mean Corpuscular Hemoglobin 30.6 pg (26-34); Mean Corpuscular Volume 88.6 fl (80-100); Mean Platelet Volume 8.9 fl (7.4-10.4); Monocytes Absolute Auto 1.3 K/mm3 (0.1-0.6); Monocytes Percent Auto 10.5 % (2.6-8.5); Neutrophils Percent Auto 55.7 % (45.5-73.1); Platelet Count Result 407 k/mm3 (150-375); Red Blood Count 3.69 M/mm3 (4.6-6.20); Red Cell Distribution Width 12.5 % (11.5-14.5); White Blood Count 12.6 K/mm3 (4.5-10.0)
[2023-08-19 06:52] LABS: Anion Gap 3 mmol/L (8-16); Blood Urea Nitrogen 6 mg/dL (9-20); Calcium 7.8 mg/dL (8.4-10.2); Carbon Dioxide 26 mmol/L (22-30); Chloride 106 mmol/L (98-107); Estimated CRCL calculation 137 ml/min; Estimated Glomerular Filt Rate > 60; Glucose 101 mg/dL (65-110); Potassium 3.7 mmol/L (3.4-5.0); Sodium 135 mmol/L (137-145)
--- NOTE | 2023-08-19 08:07 | PM.IMPN ---
Progress Note: A&P Assessment and Plan (1) Acute infective gastroenteritis: Code(s): A09 - Infectious gastroenteritis and colitis, unspecified Status: Acute (2) Sepsis: Code(s): A41.9 - Sepsis, unspecified organism Status: Acute (3) Dehydration: Code(s): E86.0 - Dehydration Status: Acute (4) Acute kidney injury: Code(s): N17.9 - Acute kidney failure, unspecified Status: Acute (5) Essential (primary) hypertension: Code(s): I10 - Essential (primary) hypertension Status: Acute Plan Acute infective gastroenteritis Patient has been having nausea vomiting diarrhea abdominal pain in past 5 days, failed outpatient treatment with Cipro The patient has a fever, tachycardia tachypnea Possible sepsis due to acute infective gastroenteritis CT suggests pancolitis Patient received ceftriaxone 1 g daily in the ED, Flagyl 500 q.8 hours IV, for increased ceftriaxone 2 g IV daily and Flagyl 500 mg q.8 hours 08/18 Follow-up blood culture no growth, Salmonella bacteria grows from stool culture, resistant to Levaquin. C diff screening negative dc Flagyl Continue ceftriaxone IV, still has diarrhea, susceptibility suggestive Bactrim. Start bactrim 1 tab q.12 hour p.o. Sepsis Patient had fever, tachypnea, tachycardia POA in the ED, possible resulting from acute infective gastroenteritis Patient received fluid resuscitation in the ED, continue normal saline IV Follow-up blood culture no growth so far,, stool culture pendig. C diff negative LUC, dehydration, hyponatremia, hypokalemia Likely secondary to acute gastroenteritis Continue fluid resuscitation, replete with potassium chloride p.o. 40 mEq daily Avoid nephrotoxic medication Follow-up BMP Acute renal failure has resolved Hypertension Hold hypertension medication, blood pressure soft Patient may stay more than 2 midnight in hospital DVT prophylaxis subQ heparin Subjective Date/time seen: 08/19/23 08:07 Interval history: Patient is afebrile over the night, feels better, still has diarrhea but has less bowel movement today, blood culture negative, stool culture grows salmonella, resistant to levofloxacin Exam Narrative: GENERAL: Pleasant, in no acute distress. Well-nourished. - EYES: EOMI. Anicteric. - HENT: Dry mucous membranes. - LUNGS: Clear to auscultation bilaterally, no wheezing, rhonchi, or rales. - CARDIOVASCULAR: Regular rate and rhythm. No murmur. No JVD. - ABDOMEN: Soft, diffuse tender and non-distended. Hyperactive bowel sounds no palpable masses. - EXTREMITIES: No edema. Peripheral pulses 2+. Non-tender. - NEUROLOGIC: No focal neurological deficits. CN II-XII grossly intact. - PSYCHIATRIC: Awake, Alert and oriented x 3. Appropriate mood and affect. - SKIN: No rashes or lesions. Warm. - LYMPH: No cervical lymphadenopathy. Objective Data Vital Signs Vital Signs: Vital Signs - 24 hr 08/18/23 10:02 08/18/23 14:00 08/18/23 20:07 Temperature 98.5 F 98.1 F Pulse Rate 94 94 Respiratory Rate 16 16 Blood Pressure 132/85 130/85 Pulse Oximetry 98 100 100 Oxygen Delivery Room Air 08/18/23 20:00 08/19/23 05:47 Temperature 97.9 F Pulse Rate 101 H Respiratory Rate 16 Blood Pressure 128/76 Pulse Oximetry 98 Oxygen Delivery Room Air Intake/Output Intake/Output: Intake & Output 08/16/23 08/17/23 08/18/23 08/19/23 23:59 23:59 23:59 23:59 Intake Total 3430 3752 4988 Balance 3430 3752 4988 Meds/Results Medications: Active Medications Generic Name Dose Route Start Last Admin Trade Name Freq PRN Reason Stop Dose Admin Heparin Sodium (Porcine) 5,000 units 08/15/23 14:00 08/19/23 06:40 Heparin Sodium 5,000 Units/Ml Vial SUB-Q 5,000 units Q8HR OLENA Administration Sodium Chloride 1,000 mls @ 125 mls/hr 08/15/23 06:50 08/19/23 00:57 Normal Saline Iv IV CONT 125 mls/hr .Q8H OLENA Administration Ceftriaxone Sodium 2 gm in 100 mls @ 200 m
[2023-08-19] MEDS: SULFAMETHOXAZOLE/TRIMETHOPRIM 800/160 MG DS TABLET 1 TAB PO ×2 (08:26→20:48)
[2023-08-19] MEDS: PANTOPRAZOLE SODIUM IV 40 MG VIAL IV PUSH (08:26)
[2023-08-19] MEDS: POTASSIUM CHLORIDE 20 MEQ PACKET (FOR LIQUID) 40 MEQ PO (08:26)
[2023-08-19 14:00] VITALS: BP 125/79; PULSE 94; RESP 16; TEMP 37.3; O2SAT 96
[2023-08-19] MEDS: cefTRIAXone 2 GM/NS 100 ML 2 GM/100 ML BAG IVPB (14:23)
[2023-08-19] MEDS: LOPERAMIDE HCL 2 MG CAPSULE PO (20:53)
[2023-08-19 21:17] VITALS: BP 124/82; PULSE 81; RESP 14; TEMP 37.7; O2SAT 97
[2023-08-20] MEDS: HEPARIN SODIUM 5,000 UNITS/ML VIAL 5000 UNITS SUB-Q ×2 (05:12→21:11)
[2023-08-20 05:21] VITALS: BP 148/85; PULSE 83; RESP 14; TEMP 37.6; O2SAT 99
[2023-08-20 07:03] LABS: Hematocrit 40.4 % (42.0-52.0); Hemoglobin 13.7 g/dL (14.0-18.0); Mean Corpuscular HGB Conc 33.9 g/dl (32-36); Mean Corpuscular Hemoglobin 30.4 pg (26-34); Mean Corpuscular Volume 89.8 fl (80-100); Mean Platelet Volume 8.9 fl (7.4-10.4); Platelet Count Result 534 k/mm3 (150-375); Red Cell Distribution Width 12.6 % (11.5-14.5); White Blood Count 15.9 K/mm3 (4.5-10.0)
[2023-08-20 07:15] LABS: Anion Gap 10 mmol/L (8-16); Blood Urea Nitrogen 7 mg/dL (9-20); Calcium 8.9 mg/dL (8.4-10.2); Carbon Dioxide 24 mmol/L (22-30); Chloride 103 mmol/L (98-107); Estimated CRCL calculation 121 ml/min; Estimated Glomerular Filt Rate > 60; Glucose 107 mg/dL (65-110); Potassium 3.7 mmol/L (3.4-5.0); Sodium 137 mmol/L (137-145)
[2023-08-20 07:46] LABS: Band Neutrophils Percent 2 % (0-6); Eosinophils Absolute Manual 1.11 K/mm3 (0.02-0.5); Eosinophils Percent Manual 7 % (0-4); Lymphocytes Absolute Manual 1.43 K/mm3 (1.1-4.5); Metamyelocytes Percent 1 %; Monocytes Absolute Manual 0.63 K/mm3 (0.1-0.90); Monocytes Percent Manual 4 % (3-9); Neutrophils Absolute Manual 12.56 K/mm3 (1.3-6.7); Neutrophils Percent Manual 77 % (46-73); Platelet Estimate Increased (Adequate); Schistocytes None Seen (NORMAL); Total Cells Counted 100
[2023-08-20] MEDS: SULFAMETHOXAZOLE/TRIMETHOPRIM 800/160 MG DS TABLET 1 TAB PO ×2 (08:20→21:11)
[2023-08-20] MEDS: PANTOPRAZOLE SODIUM IV 40 MG VIAL IV PUSH (08:21)
--- NOTE | 2023-08-20 09:03 | PM.IMPN ---
Progress Note: A&P Assessment and Plan (1) Acute infective gastroenteritis: Code(s): A09 - Infectious gastroenteritis and colitis, unspecified Status: Acute (2) Sepsis: Code(s): A41.9 - Sepsis, unspecified organism Status: Acute (3) Dehydration: Code(s): E86.0 - Dehydration Status: Acute (4) Acute kidney injury: Code(s): N17.9 - Acute kidney failure, unspecified Status: Acute (5) Essential (primary) hypertension: Code(s): I10 - Essential (primary) hypertension Status: Acute Plan Acute infective gastroenteritis Patient has been having nausea vomiting diarrhea abdominal pain in past 5 days, failed outpatient treatment with Cipro The patient has a fever, tachycardia tachypnea Possible sepsis due to acute infective gastroenteritis CT suggests pancolitis Patient received ceftriaxone 1 g daily in the ED, Flagyl 500 q.8 hours IV, for increased ceftriaxone 2 g IV daily and Flagyl 500 mg q.8 hours 08/18 Follow-up blood culture no growth, Salmonella bacteria grows from stool culture, resistant to Levaquin. C diff screening negative dc Flagyl Continue ceftriaxone IV, still has diarrhea, susceptibility suggestive Bactrim. Start bactrim 1 tab q.12 hour p.o. on 08/19 Patient still has diarrhea today, white blood cells trending up to 15,900 even though patient is on to antibiotics. I have discussed the case with ID pharmacist, mood check susceptibility of Rocephin, will repeat ct abd/pelvis Sepsis Patient had fever, tachypnea, tachycardia POA in the ED, possible resulting from acute infective gastroenteritis Patient received fluid resuscitation in the ED, continue normal saline IV Follow-up blood culture no growth so far. C diff negative LUC, dehydration, hyponatremia, hypokalemia Likely secondary to acute gastroenteritis Continue fluid resuscitation, replete with potassium chloride p.o. 40 mEq daily Avoid nephrotoxic medication Follow-up BMP Acute renal failure has resolved Hypertension Hold hypertension medication, blood pressure soft Patient may stay more than 2 midnight in hospital DVT prophylaxis subQ heparin Subjective Date/time seen: 08/20/23 09:03 Interval history: Patient is afebrile over the night, leukocytosis is trending up, patient still has diarrhea has some abdomen pain, denies nausea Exam Narrative: GENERAL: Pleasant, in no acute distress. Well-nourished. - EYES: EOMI. Anicteric. - HENT: Dry mucous membranes. - LUNGS: Clear to auscultation bilaterally, no wheezing, rhonchi, or rales. - CARDIOVASCULAR: Regular rate and rhythm. No murmur. No JVD. - ABDOMEN: Soft, diffuse tender and non-distended. Hyperactive bowel sounds no palpable masses. - EXTREMITIES: No edema. Peripheral pulses 2+. Non-tender. - NEUROLOGIC: No focal neurological deficits. CN II-XII grossly intact. - PSYCHIATRIC: Awake, Alert and oriented x 3. Appropriate mood and affect. - SKIN: No rashes or lesions. Warm. - LYMPH: No cervical lymphadenopathy. Objective Data Vital Signs Vital Signs: Vital Signs - 24 hr 08/19/23 14:00 08/19/23 21:17 08/20/23 05:21 Temperature 99.2 F 99.8 F H 99.7 F H Pulse Rate 94 81 83 Respiratory Rate 16 14 14 Blood Pressure 125/79 124/82 148/85 H Pulse Oximetry 96 97 99 Intake/Output Intake/Output: Intake & Output 08/17/23 08/18/23 08/19/23 08/20/23 23:59 23:59 23:59 23:59 Intake Total 3752 4988 810 750 Balance 3752 4988 810 750 Meds/Results Medications: Active Medications Generic Name Dose Route Start Last Admin Trade Name Freq PRN Reason Stop Dose Admin Heparin Sodium (Porcine) 5,000 units 08/15/23 14:00 08/20/23 05:12 Heparin Sodium 5,000 Units/Ml Vial SUB-Q 5,000 units Q8HR OLENA Administration Ceftriaxone Sodium 2 gm in 100 mls @ 200 mls/hr 08/15/23 15:00 08/19/23 14:53 Rocephin 2 Gm/Ns 100 Ml IVPB Infused Q24H OLENA Infusion Loperamide HCl 2 mg 08/17/23 17:00 08/19/23 20:
[2023-08-20 09:10] VITALS: PULSE 90; O2SAT 97
[2023-08-20 14:00] VITALS: BP 131/80; PULSE 96; RESP 18; TEMP 37.2; O2SAT 99
[2023-08-20] MEDS: cefTRIAXone 2 GM/NS 100 ML 2 GM/100 ML BAG IVPB (14:41)
[2023-08-20 20:00] VITALS: PULSE 96; RESP 18; O2SAT 99
[2023-08-20 22:00] VITALS: BP 116/73; PULSE 85; RESP 20; TEMP 35.8; O2SAT 99
[2023-08-21 04:30] VITALS: BP 136/90; PULSE 85; RESP 16; TEMP 36; O2SAT 100
[2023-08-21] MEDS: HEPARIN SODIUM 5,000 UNITS/ML VIAL 5000 UNITS SUB-Q (06:03)
[2023-08-21] MEDS: SULFAMETHOXAZOLE/TRIMETHOPRIM 800/160 MG DS TABLET 1 TAB PO (10:04)
[2023-08-21 13:40] VITALS: BP 142/84; PULSE 94; RESP 18; TEMP 36.3; O2SAT 97
[2023-08-21 14:38] LABS: Hematocrit 40.7 % (42.0-52.0); Mean Corpuscular HGB Conc 34.4 g/dl (32-36); Mean Corpuscular Hemoglobin 30.6 pg (26-34); Mean Corpuscular Volume 89.1 fl (80-100); Mean Platelet Volume 8.6 fl (7.4-10.4); Platelet Count Result 556 k/mm3 (150-375); Red Blood Count 4.57 M/mm3 (4.6-6.20); Red Cell Distribution Width 13.2 % (11.5-14.5); White Blood Count 18.1 K/mm3 (4.5-10.0)
[2023-08-21 14:53] LABS: Anion Gap 8 mmol/L (8-16); Blood Urea Nitrogen 9 mg/dL (9-20); Calcium 9.1 mg/dL (8.4-10.2); Carbon Dioxide 26 mmol/L (22-30); Chloride 101 mmol/L (98-107); Estimated CRCL calculation 121 ml/min; Estimated Glomerular Filt Rate > 60; Glucose 130 mg/dL (65-110); Potassium 3.8 mmol/L (3.4-5.0); Sodium 135 mmol/L (137-145)
--- NOTE | 2023-08-21 15:29 | PM.DS ---
DS: Admitting Diagnosis Discharge Date 08/21/2023 Admitting Diagnosis Fever nausea vomiting DS: Discharge Diagnosis Discharge Diagnosis (1) Acute infective gastroenteritis: Code(s): A09 - Infectious gastroenteritis and colitis, unspecified Status: Acute (2) Sepsis: Code(s): A41.9 - Sepsis, unspecified organism Status: Acute (3) Dehydration: Code(s): E86.0 - Dehydration Status: Acute (4) Acute kidney injury: Code(s): N17.9 - Acute kidney failure, unspecified Status: Acute (5) Essential (primary) hypertension: Code(s): I10 - Essential (primary) hypertension Status: Acute Plan Acute infective gastroenteritis Salmonella poisoning Patient has been having nausea vomiting diarrhea abdominal pain in past 5 days, failed outpatient treatment with Cipro The patient has a fever, tachycardia tachypnea Possible sepsis due to acute infective gastroenteritis CT suggests pancolitis Patient received ceftriaxone 1 g daily in the ED, Flagyl 500 q.8 hours IV, for increased ceftriaxone 2 g IV daily and Flagyl 500 mg q.8 hours 08/18 Follow-up blood culture no growth, Salmonella bacteria grows from stool culture, resistant to Levaquin. C diff screening negative dc Flagyl Continue ceftriaxone IV, still has diarrhea, susceptibility suggestive Bactrim. Start bactrim 1 tab q.12 hour p.o. on 08/19 Patient still has diarrhea today, white blood cells trending up to 15,900 even though patient is on to antibiotics. I have discussed the case with ID pharmacist, mood check susceptibility of Rocephin, Pt feels better precautions adviced at home ok to DC DC with bactrim Suzette ID will be notified of his case Pt to can eat regular food Sepsis resolved Patient had fever, tachypnea, tachycardia POA in the ED, possible resulting from acute infective gastroenteritis Patient received fluid resuscitation in the ED, continue normal saline IV Follow-up blood culture no growth so far. C diff negative LUC, dehydration, hyponatremia, hypokalemia Likely secondary to acute gastroenteritis Continue fluid resuscitation, replete with potassium chloride p.o. 40 mEq daily Avoid nephrotoxic medication Acute renal failure has resolved Hypertension Hold hypertension medication, blood pressure soft DS: Summary Hospital Course Hospital Course: 48 years old gentleman with history of hypertension, hyperlipidemia, present ED with a chief complaint of fever, nausea vomiting diarrhea and abdominal pain.? Patient started have fever on Saturday, start patient started have nausea vomiting diarrhea and diffuse abdominal pain on Saturday. patient visited primary care doctor on Proscar Cipro.? In past 2 days, patient cannot tolerate diet, therefore patient comes ED for evaluation.? In the ED, patient was found have normal cBC electrolytes showed a creatinine of 1.4 with a BUN of 27 this is significantly increased from the patient's previous labs patient had a lactate of 1.8 procalcitonin 0.2 urinalysis showed no evidence of UTI COVID and flu were negative. CT scan of the abdomen pelvis showed evidence of pancolitis. Patient received ceftriaxone 1 g daily in the ED, Flagyl 500 q.8 hours IV, for increased ceftriaxone 2 g IV daily and Flagyl 500 mg q.8 hours 08/18 Follow-up blood culture no growth, Salmonella bacteria grows from stool culture, resistant to Levaquin. C diff screening negative dc Flagyl Continue ceftriaxone IV, still has diarrhea, susceptibility suggestive Bactrim. Start bactrim 1 tab q.12 hour p.o. on 08/19 Patient still has diarrhea today, white blood cells trending up to 15,900 even though patient is on to antibiotics. I have discussed the case with ID pharmacist, mood check susceptibility of Rocephin, Pt feels better precautions adviced at home ok to DC DC with bactrim Pt to can eat regular food Salmonella is positive from stool cultures Suzette ID will be notified of his case Time Spent with Pa
== END 2023-08-21 16:05 | disposition home or self-care (01) | DRG 371 ==
LOC: ANHED 06:46 → ANH3MEDSUR 08:01
PROVIDERS: Hospitalist; Admitting Provider Internal Medicine; Emergency Provider Emergency Medicine; PCP Family Medicine; Visit Provider Family Medicine
DX: A02.0 Salmonella enteritis (principal); A41.9 Sepsis, unspecified organism; Z16.23 Resistance to quinolones and fluoroquinolones; N17.9 Acute kidney failure, unspecified; E87.1 Hypo-osmolality and hyponatremia; E86.0 Dehydration; E87.6 Hypokalemia; E78.5 Hyperlipidemia, unspecified; I10 Essential (primary) hypertension; Z20.822 Contact with and (suspected) exposure to COVID-19; Z79.82 Long term (current) use of aspirin
CPT/HCPCS: 36415; 74176; 74177; 80048; 80053; 81001; 83605; 83690; 83735; 84145; 85025; 85027; 87040; 87045; 87077; 87186; 87427; 87449; 87493; 87636; 96361; 96365; 96366; 96368; 96375; 96376; 99285; A9270; C9113; G0378; J0696; J1644; J1836; J2405; J7030; Q9967

== ENCOUNTER 2025-03-30 11:24 | Outpatient (CLI) | payer BC, SELFPAY ==
--- OUTSIDE RECORDS SUMMARY | 2025-03-30 11:27 | XMS_ITS | Encounter Summary ---
Author Organization [facility] Address [address] [place] [address] Care Team Providers Care Programmable Logic Controller Assembler Name Role Phone Dimitri Goodwin MD Primary Care Provider [phone] Encounter Details Date Type Department Care Team (Latest Contact Info) Description 11/07/2006 Outpatient Historical HIS [facility] [place] [id number] [place] [address] Pneumonia, Organism Unspecified (Primary Dx) Social History Tobacco Use Types Packs/Day Years Used Date Smoking Tobacco: Never Assessed Sex and Gender Information Value Date Recorded Sex Assigned at Not on file Legal Sex Male 5:15 AM [employer] Gender Identity Not on file Sexual Orientation Not on file documented as of this encounter Plan of Treatment Upcoming Encounters Date Type Department Care Team (Late st Contact Info) Description 04/13/2025 4:30 PM CDT Telephone Check Up [facility] Oncology and Hematology - [place] [address] [place] [address] Elijah Yousif MD [address] [place] [address] documented as of this encounter Visit Diagnoses Diagnosis Pneumonia, organism unspecified([id number])- Primary Pneumonia, organism unspecified documented in this encounter Care Teams Programmable Logic Controller Assembler Relationship Specialty Start Date End Date Dimitri Goodwin MD PCP - General 2/24/09 5/21/11 documented as of this encounter
--- OUTSIDE RECORDS SUMMARY | 2025-03-30 11:27 | XMS_ITS | Clinical Summary ---
Author Organization [facility] dicine Address [address] [place] [address] Care Team Providers Care Oil Seal Assembler Name Role Phone Unavailable Primary Care Provider Unavailabl e Allergies No known active allergies Medications amLODIPine (NORVASC) 10 mg tablet Take 10 mg by mouth daily. Active lisinopriL (PRINIVIL) 20 mg tablet Take 25 mg by mouth daily. Active atorvastatin (LIPITOR) 40 mg tablet Take 40 mg by mouth daily. Active aspirin (ECOTRIN EC) 81 mg Tablet, Delayed Release (E.C.) Take 81 mg by mouth daily. Active Active Problems Problem Noted Date Diagnosed Date Anxiety state 01/12/2010 Other bipolar disorders 12/14/2009 Male impotence 12/22/2008 Family history of ischemic heart disease 008 Resolved Problems Problem Noted Date Diagnosed Date Resolved Date Bipolar I disorder, single m anic episode, unspecified 07/30/2008 07/30/2008 Encounter for long-term (cur rent) use of other medications 07/30/2008 12/22/2008 Major depressive disorder, s mi episode, unspecified 07/30/2008 12/14/2009 Encounters Date Type Department Care Team Description 03/30/2025 10:30 AM CDT Office Visit [facility] Oncology and Hematology - [place] [address] [place] [address] Elijah Yousif MD Secondary thrombocytosis (Primary Dx); Dietary iron deficiency without anemia from Last 3 Months Family History Medical History Relation Name Comments Heart Disease Father No Known Problems Mother No Known Problems Sister 1 No Known Problems Sister 2 No Known Problems Sister 3 Relation Name Status Comments Father Alive Mother Alive Sister 1 Alive Sister 2 Alive Sister 3 Alive Social History Tobacco Use Types Packs/Day Years Used Date Smoking Tobacco: Never Smokeless Tobacco: Never Tobacco Cessation:Counseling Given: Not Answered Alcohol Use Standard Drinks/Week Comments Not Currently 0 (1 standard drink = 0.6 oz pur e alcohol) Sex and Gender Information Value Date Recorded Sex Assigned at Not on file 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 Gender Identity Not on file Sexual Orientation Not on file Last Filed Vital Signs Vital Sign Reading Time Taken Comments Blood Pressure 112/88 03/30/2025 10:19 AM CDT Pulse 82 03/30/2025 10:19 AM CDT Temperature 36.7 C (98 F) 03/30/2025 10:19 AM CDT Respiratory Rate 15 03/30/2025 10:19 AM CDT Oxygen Saturation 98% 03/30/2025 10:19 AM CDT Inhaled Oxygen Concentration - - Weight 95.5 kg (210 lb 9.6 oz) 03/30/2025 10:19 AM CDT Height 175.3 cm (5' 9) 03/30/2025 10:19 AM CDT Body Mass Index 31.1 03/30/2025 10:19 AM CDT Plan of Treatment Upcoming Encounters Date Type Department Care Team (Late st Contact Info) Description 04/13/2025 4:30 PM CDT Telephone Check Up [facility] Oncology and Hematology - [place] [address] [facility] [address] [place] [address] Elijah Yousif MD [address] [facility] [address] [place] [address] Health Maintenance Due Date Last Done Comments Pre-Diabetes and Diabetes Screening 1985 DTAP/TDAP/TD VACCINES (1 - Tdap) 2003 HEPATITIS B VACCINES (1 of 3 - 19+ 3-dose series) 2003 INFLUENZA VACCINE (#1) 2024 Preventative Visit- Commercial 11/04/2024 HPV VACCINES Aged Out No longer eligi ble based on patient's age to complete this topic Insurance [facility] BLUE ACCESS CHOICE Advance Directives For more information, please contact: [phone] * Full Code (Latest Code Status on File) Date Activated Date Inactivated Comments 12/14/2009 1:33 PM 12/16/2009 7:35 PM
--- OUTSIDE RECORDS SUMMARY | 2025-03-30 11:27 | XMS_ITS | Encounter Summary ---
Author Organization [facility] [employer] [facility] Address [address] [place] [address] Care Team Providers Care Boat Tester Name Role Phone Unavailable Primary Care Provider Unavailabl e Encounter Details Date Type Department Care Team (Late st Contact Info) Description 03/30/2025 10:30 AM CDT Office Visit [facility] [place] [facility] Oncology and Hematology - [place] [address] [facility] [address] [place] [address] Elijah Yousif MD [address] [facility] [address] [place] [address] Secondary thrombocytosis (Primary Dx); Dietary iron deficiency without anemia Social History Tobacco Use Types Packs/Day Years Used Date Smoking Tobacco: Never Smokeless Tobacco: Never Tobacco Cessation:Counseling Given: Not Answered Alcohol Use Standard Drinks/Week Comments Not Currently 0 (1 standard drink = 0.6 oz pur e alcohol) Sex and Gender Information Value Date Recorded Sex Assigned at Not on file 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 Gender Identity Not on file Sexual Orientation Not on file documented as of this encounter Last Filed Vital Signs Vital Sign Reading [...] Mass Index 31.1 03/30/2025 10:19 AM CDT documented in this encounter Plan of Treatment Upcoming Encounters Date Type Department Care Team (Late st Contact Info) Description 04/13/2025 4:30 PM CDT Telephone Check Up [facility] Oncology and Hematology - [place] [address] [facility] [address] [place] [address] Elijah Yousif MD [address] [facility] [address] [place] [address] Scheduled Orders Name Type Priority Associated Diagnoses Orde r Schedule CBC WITH DIFFERENTIAL Lab Stat Secondary thrombocytosis Expected: 03/30/2025, Expires: 03/30/2026 COMPREHENSIVE METABOLIC PANEL Lab Stat Secondary thrombocytosis Expected: 03/30/2025, Expires: 03/30/2026 C-REACTIVE PROTEIN Lab Routine Secondary thrombocytosis Expected: 03/30/2025, Expires: 03/30/2026 SEDIMENTATION RATE Lab Routine Secondary thrombocytosis Expected: 03/30/2025, Expires: 03/30/2026 IRON, TIBC, AND PERCENT SATURATION Lab Routine Dietary iron deficiency without anemia Expected: 03/30/2025, Expires: 03/30/2026 FERRITIN Lab Routine Dietary iron deficiency without anemia Expected: 03/30/2025, Expires: 03/30/2026 documented as of this encounter Visit Diagnoses Diagnosis Secondary thrombocytosis- Primary Essential thrombocythemia Dietary iron deficiency without anemia Other disorders of iron metabolism documented in this encounter
--- OUTSIDE RECORDS SUMMARY | 2025-03-30 11:27 | XMS_ITS | Clinical Summary ---
Author Organization [facility] [employer] Address [address] [facility] [place] [address] Care Team Providers Care Outsole Compressor Name Role Phone Paula Rivera MD Primary Care Provider Source Comments [facility] [employer],non-owned Affiliates and Associated Physician Practices is amultiple site organization consisting of ambulatory clinics and hospital sitesin [place], [place], [place] and [place]. This disclosure is being madepursuant to the Care Everywhere program and may not contain all information available regarding this patient. Last updated 18.[facility] [employer] Allergies No known active allergies Medications * Be aware that medications may not be up to date on this document. Alwaysverify current medications with the patient. ibuprofen (MOTRIN) 200 MG tablet Take 3 (three) tablets by mouth every 6 hours as needed for Pain Active atorvastatin (Lipitor) 80 MG tablet Take 1 (one) tablet by mouth at bedtime 90 tablet 3 Active amLODIPine (Norvasc) 5 MG tablet Take 1 (one) tablet by mouth once daily 90 tablet 3 Active Additional Information Patient taking differently: 10 mgOral DAILY, Reported on 03/20/2023 Active Problems Problem Noted Date Diagnosed Date Aphasia 02/22/2023 Tachycardia 02/22/2023 Essential hypertension 02/22/2023 Acute nonintractable headache, unspecified heada miguel angel type 02/22/2023 Received tissue plasminogen activator (t-PA) less than 24 hours prior to arrival 02/22/2023 FH: colon cancer 08/18/2014 Resolved Problems Problem Noted Date Diagnosed Date Resolved Date Back pain 06/04/2016 02/22/2023 Lumbar disc herniation with radiculopathy 05/14/2016 02/22/2023 Vitamin D deficiency disease 08/17/2014 02/22/2023 Family History Medical History Relation Name Comments CAD (Coronary Artery Disease) Father stents placed CAD (Coronary Artery Disease) Paternal Grandfather gpa had quad bypass CAD (Coronary Artery Disease) Paternal Grandmother Relation Name Status Comments Father Alive heart disease Paternal Grandfather Alive heart d isease Paternal Grandmother Social History Tobacco Use Types Packs/Day Years Used Date Smoking Tobacco: Never Smokeless Tobacco: Never Alcohol Use Standard Drinks/Week Comments Yes 0 (1 standard drink = 0.6 oz pur e alcohol) social AUDIT-C Answer Date Recorded Q1: How often do you have a drink containing alc ohol? Monthly or less 02/22/2023 Q2: How many drinks containi ng alcohol do you have on a typical day when you are drinking? 1 or 2 02/22/2023 Q3: How often do you have si x or more drinks on one occasion? Less than monthly 02/22/2023 Overall Financial Resource Strain (CARDIA) Answe r Date Recorded How hard is it for you to pa y for the very basics like food, housing, medical care, and heating? Not hard at all 02/22/2023 [facility] [place] of Occupat ional Health - Occupational Stress Questionnaire Answer Date Recorded Do you feel stress - tense, restless, nervous, or anxious, or unable to sleep at night because your mind is troubled all the time - these days? Not at all 02/22/2023 Hunger Vital Sign Answer Date Recorded Within the past 12 months, y ou worried that your food would run out before you got the money to buy more. Never true 02/24/20 23 Within the past 12 months, t he food you bought just didn't last and you didn't have money to get more. Never true 02/23/2023 PRAPARE - Transportation Answer Date Re corded In the past 12 months, has l ack of transportation kept you from medical appointments or from getting medications? No 02/03 In the past 12 months, has l ack of transportation kept you from meetings, work, or from getting things needed for daily living? No 02/22/2023 Housing Stability Vital Sign Answer Kvng e Recorded In the last 12 months, was t here a time when you were not able to pay the mortgage or rent on time? No 02/22/2023 In the last 12 months, how many places have you lived? 1 02/22/2023 In the last 12 months, was t here a time when you did not have a steady place to sleep or slept in a residential (including now)? 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 Not on file Not on file Not on file Last Filed Vital Signs Vital Sign Reading Time Taken Comments Blood Pressure 153/101 03/20/2023 1:12 PM CDT Pulse 92 03/20/2023 1:12 PM CDT Temperature 36.7 C (98.1 F) 03/20/2023 1:12 PM CDT Respiratory Rate 16 02/24/2023 11:40 AM CDT Oxygen Saturation 99% 03/20/2023 1:12 PM CDT Inhaled Oxygen Concentration - - Weight 95.3 kg (210 lb) 03/20/2023 1:12 PM CDT Height 175.3 cm (5' 9) 03/20/2023 1:12 PM CDT Body Mass Index 31.01 03/20/2023 1:12 PM CDT Plan of Treatment Health Maintenance Due Date Last Done Comments HIV SCREENING 1999 HEPATITIS C SCREENING 03/31/2002 DTAP/TDAP/TD VACCINES (1 - Tdap) 2003 HEPATITIS B VACCINE (1 of 3 - 19+ 3-dose series) 2003 COVID-19 VACCINE ( - 2023-2 5 season) 2024 DEPRESSION SCREENING 11/04/2024 INFLUENZA VACCINE (Season Ended) 2025 ZOSTER VACCINE (1 of 2) 2034 HIB VACCINE Aged Out No longer eligi ble based on patient's age to complete this topic HPV VACCINE Aged Out No longer eligi ble based on patient's age to complete this topic MENINGOCOCCAL (Group B) VACC INE SHARED DECISION-MAKING Aged Out No longer eligibl e based on patient's age to complete this topic MENINGOCOCCAL GROUPS A/C/Y/W VACCINE Aged Out No longer eligible b ased on patient's age to complete this topic PNEUMOCOCCAL VACCINE Aged Out No long er eligible based on patient's age to complete this topic Insurance [facility] Advance Directives * Full Code (Latest Code Status on File) Date Activated Date Inactivated Comments 02/22/2023 5:13 PM 02/24/2023 3:10 PM Care Teams Outsole Compressor Relationship Specialty Start Date End Date Paula Rivera MD [address] [place] [address] PCP - General 03/01/23
[2025-03-30 11:51] LABS: Basophils Absolute Auto 0.1 K/mm3 (0.0-0.1); Basophils Percent Auto 0.9 % (0.2-1.2); Eosinophils Absolute Auto 0.2 K/mm3 (0-0.3); Eosinophils Percent Auto 2.3 % (0-4.4); Hematocrit 42.2 % (42.0-52.0); Hemoglobin 14.6 g/dL (14.0-18.0); Immature Granulocyte Absolute 0.04 K/mm3 (0.00-0.031); Immature Granulocyte Percent A 0.4 % (0-0.5); Lymphocytes Absolute Auto 1.86 K/mm3 (0.9-3.2); Lymphocytes Percent Auto 17.9 % (18.3-44.2); Mean Corpuscular HGB Conc 34.6 g/dl (32-36); Mean Corpuscular Hemoglobin 30.7 pg (26-34); Mean Corpuscular Volume 88.8 fl (80-100); Mean Platelet Volume 9.1 fl (7.4-10.4); Monocytes Absolute Auto 0.6 K/mm3 (0.1-0.6); Monocytes Percent Auto 5.6 % (2.6-8.5); Neutrophils Absolute Auto 7.6 K/mm3 (1.3-6.7); Neutrophils Percent Auto 72.9 % (45.5-73.1); Platelet Count Result 453 k/mm3 (150-375); Red Blood Count 4.75 M/mm3 (4.6-6.20); Red Cell Distribution Width 12.2 % (11.5-14.5); White Blood Count 10.4 K/mm3 (4.5-10.0)
[2025-03-30 12:35] LABS: Iron 90 ug/dL (49-181)
[2025-03-30 12:37] LABS: Erythrocyte Sedimentation Rate 4 mm/hr (0-20)
[2025-03-30 12:42] LABS: Alanine Aminotransferase 37 U/L (6-50); Albumin Level 4.9 g/dL (3.5-5.1); Alkaline Phosphatase 95 U/L (38-126); Anion Gap 12 mmol/L (4-12); Aspartate Amino Transferase 37 U/L (17-59); Bilirubin,Total 0.5 mg/dL (0.2-1.3); Blood Urea Nitrogen 21 mg/dL (9-20); CRP < 0.5 mg/dL (<1.0); Calcium 9.5 mg/dL (8.4-10.2); Carbon Dioxide 20 mmol/L (22-30); Chloride 103 mmol/L (98-107); Estimated Glomerular Filt Rate > 60; Glucose 116 mg/dL (65-110); Potassium 4.3 mmol/L (3.4-5.0); Sodium 135 mmol/L (137-145)
[2025-03-30 12:45] LABS: Percent Iron Saturation 27 % (20-50)
== END 2025-03-30 11:25 | disposition home or self-care (01) ==
LOC: ANHLAB 11:25
PROVIDERS: PCP Family Medicine; Visit Provider Internal Medicine Hematology & Oncology
DX: D75.838 Other thrombocytosis (principal); E61.1 Iron deficiency
CPT/HCPCS: 36415; 80053; 82728; 83540; 83550; 85025; 85652; 86140

== ENCOUNTER 2025-08-18 11:01 | Outpatient (CLI) | payer BC, SELFPAY ==
[2025-08-18 11:11] LABS: Hematocrit 47.2 % (42.0-52.0); Hemoglobin 15.8 g/dL (14.0-18.0); Immature Granulocyte Percent A 0.5 % (0-0.5); Lymphocytes Absolute Auto 2.04 K/mm3 (0.9-3.2); Mean Corpuscular HGB Conc 33.5 g/dl (32-36); Mean Corpuscular Hemoglobin 29.8 pg (26-34); Mean Corpuscular Volume 88.9 fl (80-100); Nucleated Red Blood Cells Absolute Auto 0.000 K/mm3 (0.0-0.012); Nucleated Red Blood Cells Perc 0.0 % (0.0-0.2); Platelet Count Result 424 k/mm3 (150-375); Red Blood Count 5.31 M/mm3 (4.6-6.20); White Blood Count 8.6 K/mm3 (4.5-10.0)
--- OUTSIDE RECORDS SUMMARY | 2025-08-18 11:30 | XMS_ITS | Encounter Summary ---
Author Organization [facility] LIZ Ramirez [facility] Address [address] [place] [address] Care Team Providers Care Occupational Psychologist Name Role Phone Unavailable Primary Care Provider Unavailabl e Reason for Visit * Reason Comments Follow Up Encounter Details Date Type Department Care Team (Late st Contact Info) Description 08/18/2025 11:30 AM CDT Office Visit [facility] Oncology and Hematology - [place] [address] [place] [address] [facility] [address] [place] [address] Elijah Yousif MD [address] [facility] [address] [place] [address] Secondary thrombocytosis (Primary Dx) Social History Tobacco Use Types Packs/Day Years Used Date Smoking Tobacco: Never Smokeless Tobacco: Never Alcohol Use Standard Drinks/Week Comments Not Currently 0 (1 standard drink = 0.6 oz pur e alcohol) Sex and Gender Information Value Date Recorded Sex Assigned at Not on file 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 Gender Identity Not on file Sexual Orientation Not on file documented as of this encounter Last Filed Vital Signs Vital Sign Reading Time Taken Comments Blood Pressure 130/91 08/18/2025 11:16 AM CDT Pulse 84 08/18/2025 11:14 AM CDT Temperature 36.3 C (97.3 F) 08/18/2025 11:14 AM CDT Respiratory Rate 15 08/18/2025 11:14 AM CDT Oxygen Saturation 98% 08/18/2025 11:14 AM CDT Inhaled Oxygen Concentration - - Weight 97.1 kg (214 lb) 08/18/2025 11:14 AM CDT Height - - Body Mass Index 31.6 03/30/2025 10:19 AM CDT documented in this encounter Progress Notes * Elijah Yousif MD - 08/18/2025 11:17 AM CDT HEMATOLOGY / ONCOLOGY PROGRESS NOTE Patient Identification: Name: Brett Knight Age: 40 y.o. Sex: male : 1985 DIAGNOSIS Secondary thrombocytosis CURRENT TREATMENT Baby aspirin TREATMENT HISTORY SUBJECTIVE Patient came to the office for follow-up visit. He denies any chest pain and shortness of breath. No bleeding and bruising. Weight and appetite stable. No other new complaints. Review of system Constitutional: Patient did not mention fevers, sweats, denies any tiredness and fatigue, weight and appetite stable HEENT: Patient did not mention sinus congestion, hearing or vision problems Respiratory: Patient did not mention cough, dyspnea, wheeze Cardiovascular: Patient did not mention chest pain, exertional chest pressure/discomfort, nausea, syncope, shortness of breath GI: Patient did not mention constipation, diarrhea, dsyphagia, reflux symptoms, vomiting, melena : Patient did not mention dysuria, frequency, incontinence, urgency Integumentary system: no lymphadenopathy, sweats, flushing Musculoskeletal: Patient not mention: myalgia, arthralgia Neurological: Patient did not mention blurry or disturbed vision, numbness/weakness, dizziness Skin: No lumps, bumps or rashes. 12 point review of system was reviewed Objective: Vital signs in last 24 hours: As per nursing note Exam: HEENT: Atraumatic, external ears normal, nose normal, oropharynx moist, no pharyngeal exudates. no sinus tenderness Neck- normal range of motion, no tenderness, supple Respiratory: No respiratory distress, normal breath sounds, no rales, no wheezing Cardiovascular: Normal rate, normal rhythm, no murmurs, no gallops, no rubs GI: Soft, nondistended, normal bowel sounds, nontender, no splenomegaly, no hepatomegaly, no mass, no rebound, no guarding : No costovertebral angle tenderness Musculoskeletal: No edema, no tenderness, no deformities. Back- no tenderness Integument: Well hydrated, no rash, Digits and nails inspection normal Lymphatic: No lymphadenopathy noted Neurologic: Alert & oriented x 3, CN 2-12 normal, normal motor function, normal sensory function, no focal deficits noted Exam as above PATH LABS Labs from March 30 showed creatinine 0.8 total bilirubin 0.5 C-reactive protein less than 0.5 iron 90saturation 27 ferritin 161 WBC 10.4 hemoglobin 14.6 platelet 453,000 sedimentation rate 4 Labs from August 18 showed WBC 8.6 hemoglobin 15.8 platelet 424,000 Assessment: Plan: Patient Active Problem List Diagnosis Date Noted Anxiety state 01/12/2010 Other bipolar disorders 12/14/2009 Male impotence 12/22/2008 Family history of ischemic heart disease 07/30/2008 Secondary thrombocytosis. Likely reactive. Labs showed improvement in the platelet count now down to 424,000. No need for hydroxyurea treatment and JAK2 mutation testing at this time since platelet counts are already improving. Continue baby aspirin. I recommended regular exercise and weight loss. Follow-up with labs in 4 months. History of TIA diagnosed in 2022. He is asymptomatic on aspirin. Hypertension. Stable on amlodipine and lisinopril. Hyperlipidemia. Patient is on Lipitor. Follow-up in 4 months 08/18/2025 Elijah Yousif MD documented in this encounter Plan of Treatment Upcoming Encounters Date Type Department Care Team (Late st Contact Info) Description 02/24/2026 10:00 AM CDT Office Visit [facility] Oncology and Hematology - [place] [address] [facility] [address] [place] [address] Elijah Yousif MD [address] [facility] [address] [place] [address] Scheduled Orders Name Type Priority Associated Diagnoses Orde r Schedule CBC WITHOUT DIFFERENTIAL Lab Stat Secondary thrombocytosis Expected: 02/16/2026, Expires: 08/18/2026 BASIC METABOLIC PANEL Lab Stat Secondary thrombocytosis Expected: 02/16/2026, Expires: 08/18/2026 documented as of this encounter Visit Diagnoses Diagnosis Secondary thrombocytosis- Primary Essential thrombocythemia documented in this encounter
--- OUTSIDE RECORDS SUMMARY | 2025-08-18 13:03 | XMS_ITS | Encounter Summary ---
Author Organization [facility] Address 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 Gender Identity Not on file Sexual Orientation Not on file documented as of this encounter Plan of Treatment Upcoming Encounters Date Type Department Care Team (Late st Contact Info) Description 02/24/2026 10:00 AM CDT Office Visit [facility] Oncology and Hematology - [place] [address] [facility] [address] [place] [address] Elijah Yousif MD [address] [facility] [address] [place] [address] documented as of this encounter Visit Diagnoses Diagnosis Pneumonia, organism unspecified(486)- Primary Pneumonia, organism unspecified documented in this encounter Care Teams Deli Cook Relationship Specialty Start Date End Date Dimitri Goodwin MD PCP - General 12/28/08 03/24/11 documented as of this encounter
--- OUTSIDE RECORDS SUMMARY | 2025-08-18 13:03 | XMS_ITS | Clinical Summary ---
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 Gender Identity Not on file Sexual Orientation [...] (214 lb) 08/18/2025 11:14 AM CDT Height 175.3 cm (5' 9) 03/30/2025 10:19 AM CDT Body Mass Index 31.6 03/30/2025 10:19 AM CDT Plan of Treatment Upcoming Encounters Date Type Department Care Team (Late st Contact Info) Description 02/24/2026 10:00 AM CDT Office Visit [facility] Oncology and Hematology [facility] [address] [place] [address] [facility] [address] [place] [address] Elijah Yousif MD [address] [facility] [address] [place] [address] Health Maintenance Due Date Last Done Comments Pre-Diabetes and Diabetes Screening 1985 DTAP/TDAP/TD VACCINES (1 - Tdap) 2003 HEPATITIS B VACCINES (1 of 3 - 19+ 3-dose series) 11/2002 HPV VACCINES (1 - 3-dose SCDM series) 2011 Preventative Visit- Commercial 11/04/2024 INFLUENZA VACCINE (#1) 2025 Insurance [facility] [employer] PPO [id number] [facility] BLUE ACCESS CHOICE Advance Directives For more information, please contact: [phone] * Full Code (Latest Code Status on File) Date Activated Date Inactivated Comments 12/14/2009 1:33 PM 12/16/2009 7:35 PM
--- OUTSIDE RECORDS SUMMARY | 2025-08-18 13:03 | XMS_ITS | Clinical Summary ---
Author Organization [facility] [employer] Address [address] [facility] [address] Care Team Providers Care Town Planner Name Role Phone Paula Rivera MD Primary Care Provider Source Comments [facility] [employer],non-owned Affiliates and Associated Physician Practices is amultiple site organization consisting of ambulatory clinics and hospital sitesin [place], [place], [place] and [place]. This disclosure is being madepursuant to the Care Everywhere program and may not contain all information available regarding this patient. Last updated 18.[facility] [employer] Allergies No known active allergies Medications * [...] and heating? Not hard at all 02/22/2023 [facility] Occupat ional Health - Occupational Stress [...] place to sleep or slept in a snf (including now)? 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 file Not on file Not [...] of 3 - 19+ 3-dose series) 2003 HPV VACCINE (1 - 3-dose SCDM series) 2011 DEPRESSION SCREENING 11/04/2024 COVID-19 VACCINE (1 - 2023-2 5 season) 2025 INFLUENZA VACCINE (#1) 2025 ZOSTER VACCINE (1 of 2) 2034 [...] patient's age to complete this topic Insurance [facility] Advance Directives * Full Code (Latest Code Status on File) Date Activated Date Inactivated Comments 02/22/2023 5:13 PM 02/24/2023 3:10 PM Care Teams Town Planner Relationship Specialty Start Date End Date Paula Rivera MD [address] [place] [address] PCP - General 03/01/23
== END 2025-08-18 11:02 | disposition home or self-care (01) ==
LOC: ANHLAB 11:02
PROVIDERS: PCP Family Medicine; Visit Provider Internal Medicine Hematology & Oncology
DX: D75.838 Other thrombocytosis (principal)
CPT/HCPCS: 36415; 85025